=== PATIENT | male | born 2000 ===

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

== ENCOUNTER 2022-01-16 16:56 | Emergency (ER) | payer OTHER | END 2022-01-16 18:48 | disposition home or self-care (01) | LOC: ERS 16:56 | DX: B34.9 Viral infection, unspecified (principal); F41.9 Anxiety disorder, unspecified | CPT/HCPCS: 71045; 93005 ==